=== PATIENT | male | born 1975 | race Caucasian/White ===

== ENCOUNTER → 2018-07-02 | Emergency (ER) | payer OTHER ==
[~2018-07-02] VITALS: Ht 180.3 cm; Wt 95.3 kg
== END | disposition home or self-care (01) ==
LOC: ER 14:18
DX: K80.20 Calculus of gallbladder without cholecystitis without obstruction (principal); R10.11 Right upper quadrant pain

== ENCOUNTER → 2018-08-25 | Day surgery (SDC) | payer OTHER ==
[~2018-08-25] MED LIST: KEFLEX500 MG PO; ULTRACET PO; ZANTAC300 MG PO
== END | disposition home or self-care (01) ==
LOC: ADM 08-21 14:45 → CIR.AMB 07:00
DX: K80.10 Calculus of gallbladder with chronic cholecystitis without obstruction (principal)

== ENCOUNTER 2020-12-02 18:16 | Emergency (ER) | payer OTHER ==
[~2020-12-02] VITALS: Ht 180.3 cm; Wt 103.4 kg
[2020-12-02] MEDS ORDERED: ZYRTEC (18:30)
[2020-12-02] MEDS ORDERED: ADVIL (18:30)
[2020-12-02] MEDS ORDERED: DICLOFENAC SODI75 MG PO (19:53)
[2020-12-02] MEDS ORDERED: NORFLEX100MG PO (19:53)
== END 2020-12-02 19:55 | disposition home or self-care (01) ==
LOC: ER 18:16
DX: M62.830 Muscle spasm of back (principal)